=== PATIENT | male | born 2000 | race Two or more races ===

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

== ENCOUNTER 2020-10-06 18:37 | Emergency (ER) | payer MEDICAID, OTHER ==
[~2020-10-06] VITALS: Ht 185.4 cm; Wt 118.2 kg
[~2020-10-06 18:37] MED LIST changes: +ARIP10TA38 PO; -ARIP10TA8 PO; +DIVA-112 PO; -DIVA-78 PO; +ESCI-8 PO; -ESCI10TA PO
[2020-10-06 19:42] LABS: COVID AG,FIA SOURCE NASOPHARYNGEAL
[2020-10-06] MEDS ORDERED: DIPH50CA35 PO (19:43)
[2020-10-06 19:44] LABS: BASOPHILS % (AUTO) 0.5 % (0.0-2.0); HEMATOCRIT 42.3 % (41-53); HEMOGLOBIN 14.2 g/dL (13.5-17.5); LYMPHOCYTES # (AUTO) 2.6 K/uL (1.0-4.8); MEAN CORPUSCULAR HEMOGLOBIN 30.6 pg (26.0-34.0); MEAN CORPUSCULAR HGB CONC 33.7 G/dL (31.0-37.0); MEAN CORPUSCULAR VOLUME 91 fL (80-100); MONOCYTES # (AUTO) 0.6 K/uL (0.1-1.0); MONOCYTES % (AUTO) 8.1 % (2.0-9.0); NEUTROPHILS # (AUTO) 4.2 K/uL (1.8-7.7); NEUTROPHILS % (AUTO) 56.4 % (40.0-70.0); PLATELET COUNT (AUTO) 216 K/uL (150-450); RED BLOOD CELL COUNT(AUTO) 4.65 MIL/uL (4.50-5.90)
[2020-10-06] MEDS ORDERED: HALO5TAB23 PO (19:48)
[2020-10-06 19:53] LABS: ANION GAP 10 mmol/L (8-16); CALCIUM, TOTAL 9.2 mg/dL (8.8-10.5); CARBON DIOXIDE 28 mmol/L (22-29); CHLORIDE 105 mmol/L (98-107); CREATININE 1.19 mg/dL (0.60-1.30); GLOMERULAR FILTR. RATE CALC > 60 mL/min (>60); GLUCOSE,RANDOM 116 mg/dL (70-110); POTASSIUM 3.7 mmol/L (3.5-5.1); SODIUM SERUM 143 mmol/L (136-145); UREA NITROGEN, BLOOD 11 mg/dL (7-18)
[2020-10-06 19:58] LABS: ALANINE AMINOTRANSFERASE 79 U/L (12-78); ALKALINE PHOSPHATASE 91 U/L (46-116); ASPARTATE AMINOTRANSFERASE 34 U/L (15-37); BILIRUBIN,TOTAL 0.7 mg/dL (0.1-1.0); TOTAL PROTEIN, SERUM 7.4 g/dL (6.4-8.2)
[2020-10-06] MEDS ORDERED: CYCLOBENZAPRINE HCL 10 MG TABLET PO ONE (20:15)
[2020-10-06] MEDS ORDERED: KETOROLAC TROMETHAMINE 60 MG/2 ML VIAL IM ONE (20:15)
[2020-10-06] MEDS ORDERED: LIDOCAINE 5% TRANSDERMAL PATCH TD ONE (20:15)
[2020-10-06 20:59] VITALS: BP 147/89
== END 2020-10-06 21:09 | disposition home or self-care (01) ==
LOC: EMS 18:37
DX: R07.89 Other chest pain (principal); Z20.822 Contact with and (suspected) exposure to COVID-19
CPT/HCPCS: 36415; 71045; 80053; 84484; 85025; 85379; 87426; 93005; 96372; 99285; J1885

== ENCOUNTER 2022-07-19 14:34 | Emergency (ER) | payer OTHER ==
[~2022-07-19] VITALS: Ht 182.9 cm; Wt 125.0 kg
[~2022-07-19 14:34] MED LIST changes: +DIPH50CA35 PO; +HALO5TAB23 PO; -OLAN10TA3 PO; +OLAN10TA74 PO
[2022-07-19] MEDS ORDERED: FAMOTIDINE 20 MG TABLET PO ONE (15:00)
[2022-07-19] MEDS ORDERED: ACETAMINOPHEN 500 MG TABLET PO ONE (15:00)
[2022-07-19] MEDS ORDERED: MAG HYDROX/AL HYDROX/SIMETH 30 ML SUSP UDCUP PO ONE (15:00)
[2022-07-19 15:22] LABS: BASOPHILS % (AUTO) 0.6 % (0.0-2.0); EOSINOPHILS % (AUTO) 1.5 % (1.0-6.0); HEMATOCRIT 38.6 % (41-53); HEMOGLOBIN 12.6 g/dL (13.5-17.5); LYMPHOCYTES # (AUTO) 1.7 K/uL (1.0-4.8); LYMPHOCYTES % (AUTO) 33.2 % (22.0-44.0); MEAN CORPUSCULAR HEMOGLOBIN 29.8 pg (26.0-34.0); MEAN CORPUSCULAR HGB CONC 32.5 G/dL (31.0-37.0); MEAN CORPUSCULAR VOLUME 92 fL (80-100); MONOCYTES # (AUTO) 0.7 K/uL (0.1-1.0); MONOCYTES % (AUTO) 12.8 % (2.0-9.0); NEUTROPHILS # (AUTO) 2.7 K/uL (1.8-7.7); NEUTROPHILS % (AUTO) 51.9 % (40.0-70.0); PLATELET COUNT (AUTO) 144 K/uL (150-450); RED BLOOD CELL COUNT(AUTO) 4.22 MIL/uL (4.50-5.90); RED CELL DISTRIBUTION WIDTH 14.6 % (11.5-14.5)
[2022-07-19 15:23] LABS: ANION GAP 10 mmol/L (8-16); CALCIUM, TOTAL 8.9 mg/dL (8.8-10.5); CARBON DIOXIDE 30 mmol/L (22-29); CHLORIDE 103 mmol/L (98-107); CREATININE 1.08 mg/dL (0.60-1.30); GLUCOSE,RANDOM 84 mg/dL (70-110); POTASSIUM 4.2 mmol/L (3.5-5.1); SODIUM SERUM 143 mmol/L (136-145); UREA NITROGEN, BLOOD 14 mg/dL (7-18)
[2022-07-19 15:24] LABS: GLOMERULAR FILTR. RATE CALC > 60 mL/min (>60)
[2022-07-19 15:31] LABS: ALANINE AMINOTRANSFERASE 117 U/L (12-78); ALBUMIN 3.3 g/dL (3.4-5.0); ALKALINE PHOSPHATASE 60 U/L (46-116); ASPARTATE AMINOTRANSFERASE 68 U/L (15-37); BILIRUBIN,TOTAL 0.5 mg/dL (0.1-1.0); LIPASE 118 U/L (73-393); TOTAL PROTEIN, SERUM 7.2 g/dL (6.4-8.2)
[2022-07-19 17:15] VITALS: BP 125/81
== END 2022-07-19 20:24 | disposition home or self-care (01) ==
LOC: EMS 14:41
DX: K80.20 Calculus of gallbladder without cholecystitis without obstruction (principal); F84.0 Autistic disorder
CPT/HCPCS: 76705; 80053; 83690; 84484; 85025; 93005; 99285

== ENCOUNTER 2022-07-20 08:08 | Emergency (ER) | payer OTHER ==
[~2022-07-20] VITALS: Ht 182.9 cm; Wt 125.0 kg
[2022-07-20] MEDS ORDERED: MAG HYDROX/AL HYDROX/SIMETH 30 ML SUSP UDCUP PO ONE (08:15)
[2022-07-20] MEDS ORDERED: FAMOTIDINE 10 MG/ML 2 ML VIAL IVP ONE (08:15)
[2022-07-20] MEDS ORDERED: KETOROLAC TROMETHAMINE 30 MG/ML VIAL IVP ONE (08:15)
[2022-07-20 08:37] LABS: BASOPHILS % (AUTO) 0.6 % (0.0-2.0); EOSINOPHILS % (AUTO) 2.3 % (1.0-6.0); HEMATOCRIT 39.3 % (41-53); HEMOGLOBIN 13.2 g/dL (13.5-17.5); LYMPHOCYTES # (AUTO) 1.9 K/uL (1.0-4.8); LYMPHOCYTES % (AUTO) 40.6 % (22.0-44.0); MEAN CORPUSCULAR HEMOGLOBIN 30.6 pg (26.0-34.0); MEAN CORPUSCULAR HGB CONC 33.7 G/dL (31.0-37.0); MEAN CORPUSCULAR VOLUME 91 fL (80-100); MONOCYTES # (AUTO) 0.5 K/uL (0.1-1.0); MONOCYTES % (AUTO) 11.1 % (2.0-9.0); NEUTROPHILS # (AUTO) 2.1 K/uL (1.8-7.7); NEUTROPHILS % (AUTO) 45.4 % (40.0-70.0); PLATELET COUNT (AUTO) 149 K/uL (150-450); RED BLOOD CELL COUNT(AUTO) 4.31 MIL/uL (4.50-5.90); RED CELL DISTRIBUTION WIDTH 14.1 % (11.5-14.5)
[2022-07-20] MEDS ORDERED: IOHEXOL 350 MG/ML 100 ML VIAL ONE (08:47)
[2022-07-20] MEDS ORDERED: SODIUM CHLORIDE 0.9% 100 ML ONE (08:47)
[2022-07-20 08:49] LABS: ANION GAP 6 mmol/L (8-16); CARBON DIOXIDE 30 mmol/L (22-29); CHLORIDE 102 mmol/L (98-107); CREATININE 1.13 mg/dL (0.60-1.30); GLOMERULAR FILTR. RATE CALC > 60 mL/min (>60); GLUCOSE,RANDOM 92 mg/dL (70-110); POTASSIUM 4.3 mmol/L (3.5-5.1); SODIUM SERUM 138 mmol/L (136-145); UREA NITROGEN, BLOOD 15 mg/dL (7-18)
[2022-07-20 08:55] LABS: ALANINE AMINOTRANSFERASE 129 U/L (12-78); ALBUMIN 3.4 g/dL (3.4-5.0); ALKALINE PHOSPHATASE 66 U/L (46-116); ASPARTATE AMINOTRANSFERASE 80 U/L (15-37); BILIRUBIN,TOTAL 0.7 mg/dL (0.1-1.0); LIPASE 130 U/L (73-393); TOTAL PROTEIN, SERUM 7.4 g/dL (6.4-8.2)
[2022-07-20 12:08] LABS: APPEARANCE,URINE CLEAR (CLEAR); BILIRUBIN,URINE NEGATIVE (NEGATIVE); GLUCOSE, URINE (UA) NEGATIVE (NEGATIVE); KETONES,URINE TRACE mg/dL (NEGATIVE); LEUKOCYTE ESTERASE ,URINE NEGATIVE (NEGATIVE); NITRATE,URINE NEGATIVE (NEGATIVE); OCCULT BLOOD,URINE NEGATIVE (NEGATIVE); PROTEIN,URINE 30-70 mg/dL (NEGATIVE); UROBILINOGEN,URINE <=1.0 mg/dL (<=1.0)
[2022-07-20 12:30] VITALS: BP 122/68
[2022-07-20 12:35] LABS: BACTERIA,URINE None Seen /HPF (None Seen); RBC,URINE None Seen /HPF (0-2); SQUAMOUS EPITHELIAL CELL,UR Few /LPF (None Seen); WBC,URINE None Seen /HPF (0-5)
== END 2022-07-20 12:59 | disposition home or self-care (01) ==
LOC: EMS 08:11
DX: R10.32 Left lower quadrant pain (principal); K80.20 Calculus of gallbladder without cholecystitis without obstruction; F84.0 Autistic disorder
CPT/HCPCS: 99285; 74177; 96374; 96375; 80053; 81001; 83690; 85025; 36415; J3490; J1885; Q9967; J7050

== ENCOUNTER 2023-10-18 09:33 | Emergency (ER) | payer MEDICARE, OTHER ==
[~2023-10-18] VITALS: Ht 177.8 cm; Wt 140.9 kg
[~2023-10-18 09:33] MED LIST changes: +CHLO100T42 PO; +DIPH25CA85 PO; -DIPH50CA35 PO; -ESCI-8 PO; -HALO5TAB23 PO; -LORA-1000 PO; -OLAN10TA74 PO; +ZIPR60CA29 PO
[2023-10-18 09:39] VITALS: TEMP 97.9
[2023-10-18] MEDS ORDERED: TRAZ-252 PO (09:54)
[2023-10-18] MEDS ORDERED: IBUP-2077 PO (09:54)
[2023-10-18] MEDS ORDERED: ZIPR40CA38 PO (09:54)
[2023-10-18] MEDS ORDERED: BENZ1TAB84 PO (09:54)
[2023-10-18] MEDS ORDERED: OMEP20CA12 PO (09:54)
[2023-10-18] MEDS ORDERED: CHLO100T36 PO (09:54)
[2023-10-18 10:10] LABS: BASOPHILS % (AUTO) 0.4 % (0.0-2.0); EOSINOPHILS % (AUTO) 1.2 % (1.0-6.0); HEMATOCRIT 43.5 % (41-53); HEMOGLOBIN 14.6 g/dL (13.5-17.5); LYMPHOCYTES # (AUTO) 1.8 K/uL (1.0-4.8); LYMPHOCYTES % (AUTO) 35.1 % (22.0-44.0); MEAN CORPUSCULAR HEMOGLOBIN 31.1 pg (26.0-34.0); MEAN CORPUSCULAR HGB CONC 33.5 G/dL (31.0-37.0); MEAN CORPUSCULAR VOLUME 93 fL (80-100); MONOCYTES # (AUTO) 0.5 K/uL (0.1-1.0); MONOCYTES % (AUTO) 9.4 % (2.0-9.0); NEUTROPHILS # (AUTO) 2.7 K/uL (1.8-7.7); NEUTROPHILS % (AUTO) 53.9 % (40.0-70.0); PLATELET COUNT (AUTO) 139 K/uL (150-450); RED BLOOD CELL COUNT(AUTO) 4.68 MIL/uL (4.50-5.90); RED CELL DISTRIBUTION WIDTH 14.1 % (11.5-14.5)
[2023-10-18 11:08] LABS: ALCOHOL, BLOOD (SERUM) < 3 mg/dL (0-10)
[2023-10-18 11:37] LABS: ANION GAP 11 mmol/L (8-16); CALCIUM, TOTAL 9.3 mg/dL (8.8-10.5); CARBON DIOXIDE 27 mmol/L (22-29); CHLORIDE 100 mmol/L (98-107); CREATININE 1.21 mg/dL (0.60-1.30); GLOMERULAR FILTR. RATE CALC > 60 mL/min (>60); GLUCOSE,RANDOM 93 mg/dL (70-110); POTASSIUM 4.3 mmol/L (3.5-5.1); SODIUM SERUM 138 mmol/L (136-145); UREA NITROGEN, BLOOD 11 mg/dL (7-18)
[2023-10-18 11:41] LABS: ALANINE AMINOTRANSFERASE 89 U/L (12-78); ALBUMIN 3.4 g/dL (3.4-5.0); ALKALINE PHOSPHATASE 54 U/L (46-116); ASPARTATE AMINOTRANSFERASE 58 U/L (15-37); TOTAL PROTEIN, SERUM 7.5 g/dL (6.4-8.2)
[2023-10-18 13:20] VITALS: BP 123/66; PULSE 105; RESP 18
== END 2023-10-18 13:34 | disposition home or self-care (01) ==
LOC: EMS 09:35
DX: F84.0 Autistic disorder (principal)
CPT/HCPCS: 99283; 80053; 85025; 36415; G0480

== ENCOUNTER 2023-12-20 16:30 | Emergency (ER) | payer MEDICARE, OTHER ==
[~2023-12-20] VITALS: Ht 185.4 cm; Wt 136.0 kg
[~2023-12-20 16:30] MED LIST changes: +AMOX250C4 PO; -ARIP10TA38 PO; +BENZ-247 PO; +CHLO100T36 PO; -CHLO100T42 PO; -DIPH25CA85 PO; +IBUP-2077 PO; +OMEP20CA12 PO; +TRAZ-252 PO; +ZIPR40CA38 PO; -ZIPR60CA29 PO
[2023-12-20] MEDS: ACETAMINOPHEN 500 MG TABLET PO ONE (20:43)
[2023-12-20 21:30] VITALS: TEMP 97
[2023-12-20 21:43] VITALS: BP 129/75; PULSE 95; RESP 20
== END 2023-12-20 21:49 | disposition home or self-care (01) ==
LOC: EMS 16:30
DX: S09.90XA Unspecified injury of head, initial encounter (principal); X58.XXXA Exposure to other specified factors, initial encounter; Y93.89 Activity, other specified; Y92.89 Other specified places as the place of occurrence of the external cause; Y99.8 Other external cause status
CPT/HCPCS: 70450; 99284